=== PATIENT | male | born 1950 | race Caucasian/White ===

== ENCOUNTER 2016-07-07 15:30 | Observation (INO) | payer BC ==
[2016-07-07] MEDS ORDERED: METOCLOPRAMIDE HCL 5 MG/ML VIAL IV ONE (16:22)
--- NOTE | 2016-07-07 16:42 | ERNOTE ---
Medical Problem HPI - Narrative Date of Service: 07/07/16 - General Chief Complaint: Flu Symptoms Time Seen by Provider: 07/07/16 16:06 Source: patient Exam Limitations: no limitations - Immun/Allergies/Home Medications Immunizations: IMMUNIZATION HX Immunizations Up to Date No History of Influenza Vaccine No Hx Pneumococcal Vaccination No Allergies/Adverse Reactions: Allergies No Known Allergies Allergy (Verified 07/21/12 17:21) Home Medications: HOME MEDICATIONS Atorvastatin Calcium [Lipitor] 20 mg PO DAILY 07/21/12 [Last Taken Unknown] Diovan Hct 160-25 mg Tablet 1 tab PO DAILY 07/21/12 [Last Taken Unknown] Levothyroxine Sodium [Synthroid] 200 mcg PO DAILY 07/21/12 [Last Taken Unknown] Varenicline Tartrate [Chantix] 1 mg PO DAILY 07/07/16 [Last Taken Unknown] buPROPion HCL [Wellbutrin XL] 150 mg PO DAILY 07/07/16 [Last Taken Unknown] - History of Present History Narrative: Pt. comes in with c/o weakness, cough, headache, sinus congestion, fever, and hiccups. Pt. states that he has had the cough and hiccups for 3 days but states that he has had the other symptoms since yesterday. Pt. denies any alleviating factors or aggravating factors. Pt. denies any NVD but states taht he has not been eating or drinking as much lately due to the overall malaise that he feels. Pt. is currently on abx for assumed tooth infection as pt. went to dentist for sinus and tooth pain. Review of Systems - Review of Systems Constitutional: Present: fever, chills, weakness, fatigue, malaise EYE: Present: no symptoms reported. Absent: eye pain, eye discharge, double vision ENT: Present: nose congestion, nasal drainage, other - teeth pain Respiratory: Present: cough. Absent: shortness of breath, wheezing Cardiology: Present: no symptoms reported. Absent: chest pain, palpitations, edema Gastrointestinal/Abdominal: Present: no symptoms reported. Absent: nausea, vomiting, diarrhea Genitourinary: Present: no symptoms reported Musculoskeletal: Present: muscle pain - generalized, joint pain - generalized Skin: Present: no symptoms reported Neurological: Present: headache. Absent: dizziness/light-headedness, numbness, tingling All Other Systems: All systems neg except as marked - Patient's Past Medical History Patient History - Medical: No pertinent hx - Social History Smoking Status: Never smoker Have you smoked in the past 12 months: No Do you dip or chew tobacco: No - Immunizations Immunizations Up to Date: No Hx Pneumococcal Vaccination: No History of Influenza Vaccine: No Physical Exam - Physical Exam General Appearance: Present: wd/wn, alert, no apparent distress Eye Exam: Normal inspection: bilateral, PERRL: bilateral, EOMI: bilateral Ears, Nose, Throat: Present: hearing decreased - R ear, abnormal TM (L) - TM tube, nasal congestion, sinus pain/drainage, pharyngeal erythema, tonsillar exudate - clear. Absent: abnormal TM (R) Neck: Present: normal inspection, nontender, supple, full range of motion. Absent: lymphadenopathy (R), lymphadenopathy (L) Respiratory: Present: no respiratory distress, normal breath sounds, no accessory muscle use, chest nontender, lungs clear. 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 Absent: motor weakness Skin Exam: Present: normal color, warm/dry. Absent: pallor, skin rash ED Progress - Date and Time Seen: Date and Time: 07/07/16 20:36 Discussed case with Vanna Ye and we will admit pt for observation to ensure improvement in renal disease. - Results and Orders Patient's Lab Results:: I have reviewed the patient's lab results. - Vital Signs Patient's Vital Signs:: I have reviewed the patient's vital signs. Vital Signs: Vital Signs 07/07/16 16:00 Temperature 38.1 C H Pulse Rate 126 H Respiratory 20 Rate Blood Pressure 138/77 O2 Sat by Pulse 95 Oximetry - X-Ray X-Ray #1 X-Ray: chest Interpretation: Reviewed by me X-ray Comments: bronchial cuffing no consolidation - Progress/Reassessment Chief Complaint: Flu Symptoms Progress:: Unchanged Departure - Departure Clinical Impression: Influenza A, Bronchitis, Dehydration, TRISTAN (acute kidney injury) Disposition: [facility] Condition: Fair
[2016-07-07] MEDS ORDERED: LIDOCAINE HCL 20 ML UDC PO ONE (16:46)
[2016-07-07] MEDS ORDERED: SUCRALFATE 1 G/10 ML UDC PO ONE (16:46)
[2016-07-07] MEDS ORDERED: MAG HYDROX/ALUMINUM HYD/SIMETH 30 ML UDC PO ONE (16:46)
[2016-07-07] MEDS ORDERED: NORMAL SALINE 1,000 ML IV ONE (16:47)
[2016-07-07] MEDS ORDERED: METOCLOPRAMIDE HCL 5 MG/ML VIAL ONE (16:49)
[2016-07-07 16:52] LABS: Hematocrit 45.6 % (42.0-52.0); Hemoglobin 15.4 gm/dL (13.5-18.0); Mean Cell Volume 89.1 fl (78-100); Mean Corpuscular Hemoglobin 30.1 pg (27-31); Mean Corpuscular Hgb Conc 33.8 g/dl (32-36); Mean Platelet Volume 11.6 fl (6.0-9.5); Neutrophil # 12.6 K/mm3 (1.3-6.0); Neutrophil % 89.2 % (42-75.0); Platelet Count 239 K/mm3 (150-450); Red Blood Count 5.12 M/mm3 (4.7-6.0); Red Cell Distribution Width 13.9 % (11.5-14.0); White Blood Count 14.2 K/mm3 (4.0-10.5)
[2016-07-07 17:07] LABS: Albumin * 3.5 gm/dl (3.4-5.0); Anion Gap 15.3 mmol/L (6.8-13.8); BUN/Creatinine Ratio 13.5 (9.0-21.6); Bilirubin, Total 0.7 mg/dL (0.0-1.1); Calcium * 8.9 mg/dL (7.9-10.9); Potassium 3.3 mmol/L (3.4-4.6); Total Protein 7.6 gm/dL (6.2-8.2)
[2016-07-07 17:16] LABS: Urine Bilirubin 1 mg/dl (NEGATIVE); Urine Ketone Negative (NEGATIVE); Urine Nitrite Negative (NEGATIVE); Urine Protein 15 mg/dL (NEGATIVE); Urine Specific Gravity >=1.030 SP.GR. (1.005-1.030); Urine Urobilinogen Normal (NORMAL); Urine pH 5.5 pH (5.0-7.0)
[2016-07-07] MEDS ORDERED: NORMAL SALINE 1,000 ML IV PRN (17:24)
[2016-07-07] MEDS ORDERED: LEVOFLOXACIN/D5W 750 MG/150 ML BAG IV SCH (17:30)
[2016-07-07 17:39] LABS: Urine Appearance Clear; Urine Bacteria TRACE; Urine Blood 10 /ul (NEGATIVE); Urine Color Dark Yellow; Urine Fine Granular Cast 0-5 /LPF; Urine Hyaline Cast >25 /LPF; Urine Mucus Many - 3+; Urine RBC 0-5 /hpf (0-5); Urine WBC 0-5 /hpf (0-5)
[2016-07-07 17:44] LABS: Albumin * 3.5 gm/dl (3.4-5.0); Bilirubin Direct 0.2 mg/dL (0.0-0.3); Bilirubin, Total 0.7 mg/dL (0.0-1.1); Bilirubin,Indirect 0.5 mg/dL (0.1-0.7); Chol/HDL Risk Ratio 2.7 mg/dL (3.3-5.0); TSH * 1.081 uIU/mL (0.358-3.74); Total Protein 7.7 gm/dL (6.2-8.2)
[2016-07-07 18:01] LABS: T4 Free * 1.4 ng/dL (0.76-1.46)
[2016-07-07] MEDS ORDERED: ONDANSETRON HCL/PF 2 MG/ML VIAL IV PRN (21:11)
--- NOTE | 2016-07-07 21:13 | HP ---
<EphraimVanna - Last Filed: 07/08/16 01:03> Chief Complaint - Chief Complaint Date of Service: 07/07/16 Time of Service: 20:42 Chief Complaint: " Coughing, nasal drainage, body aches, headaches". Source of HPI- Pt;Reliable, ER provider report. History of Present Illness: Mr. Canas is a 65-yr-old WM pt of Dr. Beornica Lane with a PMH of: Anxiety, Depression, Grave's disease, HTN, HLD, Osteoathritis, & Sleep Apnea. Pt states that he has not felt well since Sunday. He developed nasal drainage and non productive coughing. Over the course of the week, he has not felt any better and the symptoms have worsened. He has been unable to eat or drink normally. He has also had headaches and body aches. Today, he felt dizzy on top of all the other symptoms and so he chose to come to the [facility] ER. He is unsure about having fevers but has had chills. He denies n/v, diarrhea, abd pain, and chest pain. He reports seeing a dentist on Sunday for unrelated ill events to the current symptoms. He had RT Jaw pain but no dental infection was found. He was started on Penicillin & Vicodin. He has less discomfort/pain on the jaw now. During evaluation at the ED, the CXR showed findings consistent with acute/ chronic bronchitis and was positive for Influenza A as well. He was febrile with a temp of 38.3, had elevated WBC of 14,200 with a left shift and BUN/CR 26 /1.93. He will be admitted under observation due to TRISTAN secondary to dehydration , and will require aggressive IVF hydration. - Patient's Past Medical History Patient History - Medical: Anxiety, Depression, Other - Grave's disease, Osteoathritis, Sleep apnea, Patient History - Cardiac/Respiratory: Hypertension, Hyperlipidemia, Other Patient History - Cancer: No Hx of Cancer Patient History - Surgical Procedures: Other - parotid gland surgery, Sinus surgery, Tonsilectomy. - Family History Father Family History - Medical: Family History - Cancer: Prostate Mother Family History - Cardiac/Respiratory: Hypertension - Social History Living Situations: spouse Smoking Status: Current every day smoker - 10 cig/day x 10 yrs Have you smoked in the past 12 months: No Do you dip or chew tobacco: No Alcohol Use: none Drug Use: none - Immunizations Immunizations Up to Date: No Hx Pneumococcal Vaccination: No History of Influenza Vaccine: No Review Of Systems (GEN) - Review of Systems Generalized/Overall Review: Present: Weakness, Fatigue. Absent: Chills, Fever, Diaphoresis EENTM: Present: Tearing, Nose Pain, Nose Congestion, Throat Pain. Absent: Eye Pain Respiratory: Present: Cough. Absent: Shortness of Breath, Wheezing Cardiac: Absent: Chest Pain, Edema, Palpitations, Syncope Abdominal: Absent: Nausea, Vomiting, Abdominal Pain, Constipation Genitourinary: Absent: Burning, Itching, Urgency, Frequency, Hematuria Musculoskeletal: Absent: Joint Pain, Back Pain, Muscle Pain Neurological: Present: Headache, Anxiety, Emotional Problems. Absent: Numbness Skin: Absent: Dryness, Lesions, Lumps, Bruising Endocrine: Absent: Intolerance to Cold, Intolerance to Heat, Increased Thirst Misc: All systems neg except as marked Immunizations: IMMUNIZATION HX Immunizations Up to Date No History of Influenza Vaccine No Hx Pneumococcal Vaccination No Allergies/Adverse Reactions: Allergies Allergy/AdvReac Type Severity Reaction Status Date / Time No Known Allergies Allergy Verified 07/21/12 17:21 Home Medications: HOME MEDICATIONS Atorvastatin Calcium [Lipitor] 20 mg PO DAILY 07/21/12 [Last Taken Unknown] Diovan Hct 160-25 mg Tablet 1 tab PO DAILY 07/21/12 [Last Taken Unknown] Levothyroxine Sodium [Synthroid] 200 mcg PO DAILY 07/21/12 [Last Taken Unknown] Potassium Chloride [Klor-Con 10] 10 meq PO DAILY 07/07/16 [Last Taken Unknown] buPROPion HCL [Wellbutrin XL] 150 mg PO DAILY 07/07/16 [Last Taken Unknown] Exam - Exam Vital Signs: Vital Signs - Last Taken Temp 38.3 C H 07/07/16 20:17 Pulse 117 H 07/07/16 20:17 Resp 20 07/07/16 20:17 BP 133/73 07/07/16 20:17 Pulse Ox 95 07/07/16 20:17 Constitutional: Present: Alert, Oriented x3, Cooperative, Mild distress ENT Exam: Present: hard of hearing, nasal congestion, nasal drainage, pharyngeal erythema, dry mucous membranes Eye Exam: bilateral eye: PERRL, other - Teary/watery eyes Neck: Present: full range of motion, supple, normal inspection, trachea midline Back Exam: Present: no CVA tenderness Respiratory: Present: no accessory muscle use, decreased breath sounds, No wheezing Cardiovascular/Chest: Present: regular rate, rhythm, no murmur Abdomen: Present: Normal bowel sounds, soft, nontender /Rectal: Present: Exam deferred Extremity: Present: non-tender, normal inspection, no pedal edema Skin Exam: Present: warm/dry, no cyanosis Lymphatic: Present: no adenopathy Neurologic: Present: no motor/sensory deficits, alert, oriented x 3 Appearance: Present: appropriate appearance, appropriate insight Eye contact: Present: cooperative, good eye contact, normal speech Thoughts: Present: normal thought pattern, no apparent hallucination Diagnostic Studies: Laboratory Results WBC 14.2 K/mm3 (4.0-10.5) H 07/07/16 16:35 RBC 5.12 M/mm3 (4.7-6.0) 07/07/16 16:35 Hgb 15.4 gm/dL (13.5-18.0) 07/07/16 16:35 Hct 45.6 % (42.0-52.0) 07/07/16 16:35 MCV 89.1 fl (78-100) 07/07/16 16:35 MCH 30.1 pg (27-31) 07/07/16 16:35 MCHC 33.8 g/dl (32-36) 07/07/16 16:35 RDW 13.9 % (11.5-14.0) 07/07/16 16:35 Plt Count 239 K/mm3 (150-450) 07/07/16 16:35 MPV 11.6 fl (6.0-9.5) H 07/07/16 16:35 Immature Gran % (Auto) 0.40 % (0.001-0.429) 07/07/16 16:35 Immature Gran # (Auto) 0.05 K/mm3 (0.000-0.0310) H 07/07/16 16:35 Neutrophils % 89.2 % (42-75.0) H 07/07/16 16:35 Lymphocytes % 3.7 % (20-51) L 07/07/16 16:35 Monocytes % 6.1 % (0.0-9) 07/07/16 16:35 Eosinophils % 0.0 % (0.0-3.0) 07/07/16 16:35 Basophils % 0.6 % (0.0-1.0) 07/07/16 16:35 Nucleated RBC % 0.0 k/mm3 (0-1) 07/07/16 16:35 Neutrophils # 12.6 K/mm3 (1.3-6.0) H 07/07/16 16:35 Lymphocytes # 0.5 k/mm3 (1.5-3.5) L 07/07/16 16:35 Monocytes # 0.9 k/mm3 (0.0-1.0) 07/07/16 16:35 Eosinophils # 0.0 k/mm3 (0.0-0.7) 07/07/16 16:35 Absolute Basophils 0.1 k/mm3 (0.0-0.1) 07/07/16 16:35 Sodium 135 mmol/L (132-142) 07/07/16 16:35 Plasma Sodium 136 mmol/L (130-142) 07/07/16 16:35 Potassium 3.3 mmol/L (3.4-4.6) L 07/07/16 16:35 Chloride 100 mmol/L (97-106) 07/07/16 16:35 Carbon Dioxide 23.0 mmol/L (24-32.6) L 07/07/16 16:35 Anion Gap 15.3 mmol/L (6.8-13.8) H 07/07/16 16:35 BUN 26 mg/dL (6-23) H 07/07/16 16:35 Creatinine 1.93 mg/dL (0.4-1.4) H D 07/07/16 16:35 Est GFR (Non-Af Amer) 37 mL/min (60-130) L D 07/07/16 16:35 BUN/Creatinine Ratio 13.5 (9.0-21.6) 07/07/16 16:35 Random Glucose 144 mg/dL (70-110) H 07/07/16 16:35 Lactic Acid, Venous 0.9 mmol/L (0.4-2.0) 07/07/16 19:29 Calcium 8.9 mg/dL (7.9-10.9) 07/07/16 16:35 Calcium Adj for Albumin 9.0 mg/dL (8.4-10.2) 07/07/16 16:35 Total Bilirubin 0.7 mg/dL (0.0-1.1) 07/07/16 16:35 Direct Bilirubin 0.2 mg/dL (0.0-0.3) 07/07/16 16:30 Indirect Bilirubin 0.5 mg/dL (0.1-0.7) 07/07/16 16:30 AST 27 U/L (0-48) 07/07/16 16:35 ALT 35 U/L (19-67) 07/07/16 16:35 Alkaline Phosphatase 72 U/L (50-170) 07/07/16 16:35 Total Protein 7.6 gm/dL (6.2-8.2) 07/07/16 16:35 Albumin 3.5 gm/dl (3.4-5.0) 07/07/16 16:35 Triglycerides 77 mg/dL (30-200) 07/07/16 16:30 Cholesterol 122 mg/dL (0-200) 07/07/16 16:30 LDL Cholesterol 63 mg/dL (70-130) L 07/07/16 16:30 VLDL Cholesterol 15 mg/dL (5-40) 07/07/16 16:30 HDL Cholesterol 44 mg/dL (40-60) 07/07/16 16:30 Cholesterol/HDL Ratio 2.7 mg/dL (3.3-5.0) L 07/07/16 16:30 Procalcitonin 0.34 ng/mL (0.05-0.50) 07/07/16 16:35 TSH 1.081 uIU/mL (0.358-3.74) 07/07/16 16:30 Free T4 1.40 ng/dL (0.76-1.46) 07/07/16 16:30 Urine Color Dark yellow 07/07/16 17:00 Urine Appearance Clear 07/07/16 17:00 Urine pH 5.5 pH (5.0-7.0) 07/07/16 17:00 Ur Specific Kennedy >=1.030 SP.GR. (1.005-1.030) 07/07/16 17:00 Urine Protein 15 mg/dL (NEGATIVE) H 07/07/16 17:00 Urine Glucose (UA) Negative mg/dL (NEGATIVE) 07/07/16 17:00 Urine Ketones Negative mg/dL (NEGATIVE) 07/07/16 17:00 Urine Blood 10 /ul (NEGATIVE) H 07/07/16 17:00 Urine Nitrate Negative (NEGATIVE) 07/07/16 17:00 Urine Bilirubin 1 mg/dl (NEGATIVE) H 07/07/16 17:00 Urine Ictotest Negative (NEGATIVE) 07/07/16 17:00 Prot Sulfosalicylic Acd Negative mg/dL (0) 07/07/16 17:00 Urine Urobilinogen Normal EU/dl (NORMAL) 07/07/16 17:00 Ur Leukocyte Esterase Negative /ul (NEGATIVE) 07/07/16 17:00 Urine RBC 0-5 /hpf (0-5) 07/07/16 17:00 Urine WBC 0-5 /hpf (0-5) 07/07/16 17:00 Ur Epithelial Cells 0-5 /hpf (0-5) 07/07/16 17:00 Urine Bacteria Trace (NONE) 07/07/16 17:00 Hyaline Casts >25 /LPF (NONE) H 07/07/16 17:00 Fine Granular Casts 0-5 /LPF (NONE) H 07/07/16 17:00 Urine Mucus Many - 3+ (NONE) H 07/07/16 17:00 Urine Culture Comments No culture indicated 07/07/16 17:00 Influenza Type A Ag Positive (NEGATIVE) H 07/07/16 16:15 Influenza Type B Ag Negative (NEGATIVE) 07/07/16 16:15 Assessment/Plan - Assessment/Plan (1) TRISTAN (acute kidney injury) Assessment: Noted to have BUN/CR of 26/1.93. His baseline is usually in the NR. Is pre- renal due to dehydration from poor oral/intake and fevers. Will provide aggressive IVF hydration. BMP in am. Problem: Acute (2) Dehydration Assessment: Rehydration with IVF, labs in am. Problem: Acute (3) Influenza A Assessment: Was Positive for Influenza A- Will start Osetalmivir 75mg bid x 10 days. If he gets severely ill, can increase the doses to 150mg b.i.d, but consider creatinine clearance. Problem: Acute (4) Acute bronchiolitis Assessment: Routine antibiotics not usually recommended for uncomplicated acute bronchitis. However, given pt's fevers, elevated WBC with a left shift, being a smoker, it will be beneficial to continue with the IV antibiotics. Will add Albuterol PRN for airflow limitation/SOB. Problem: Acute (5) Hypokalemia Assessment: Oral Replenishing, BMP in am Problem: Acute (6) Hiccoughs Assessment: Has has acute hiccuughs lasting several hours. Will utilize Reglan prn to help with the symptom. Problem: Acute (7) HTN (hypertension) Assessment: Stable - on Diovan. Problem: Chronic QualifierTitle: Hypertension type: essential hypertension Qualified Code( s): I10 - Essential (primary) hypertension (8) Depression Assessment: Stable -on Wellbutrin. Problem: Chronic <Juan Alvarado - Last Filed: 07/08/16 11:44> Immunizations: IMMUNIZATION HX Immunizations Up to Date No History of Influenza Vaccine No Hx Pneumococcal Vaccination No Exam - Exam Vital Signs: Vital Signs - Last Taken Temp 37.3 C 07/08/16 10:52 Pulse 84 07/08/16 10:52 Resp 20 07/08/16 10:52 BP 119/70 07/08/16 10:52 Pulse Ox 90 07/08/16 10:52 Diagnostic Studies: Abnormal Lab Results 07/08/16 07/08/16 Range/Units 05:33 05:33 WBC 10.9 H D (4.0-10.5) K/mm3 RBC 4.38 L (4.7-6.0) M/mm3 Hgb 13.0 L (13.5-18.0) gm/dL Hct 39.1 L (42.0-52.0) % MPV 11.1 H (6.0-9.5) fl Immature Gran # (Auto) 0.04 H (0.000-0.0310) K/mm3 Neutrophils % 82.2 H (42-75.0) % Lymphocytes % 8.2 L (20-51) % Neutrophils # 9.0 H (1.3-6.0) K/mm3 Lymphocytes # 0.9 L (1.5-3.5) k/mm3 Potassium 3.3 L (3.4-4.6) mmol/L Laboratory Results WBC 10.9 K/mm3 (4.0-10.5) H D 07/08/16 05:33 RBC 4.38 M/mm3 (4.7-6.0) L 07/08/16 05:33 Hgb 13.0 gm/dL (13.5-18.0) L 07/08/16 05:33 Hct 39.1 % (42.0-52.0) L 07/08/16 05:33 MCV 89.3 fl (78-100) 07/08/16 05:33 MCH 29.7 pg (27-31) 07/08/16 05:33 MCHC 33.2 g/dl (32-36) 07/08/16 05:33 RDW 13.7 % (11.5-14.0) 07/08/16 05:33 Plt Count 180 K/mm3 (150-450) 07/08/16 05:33 MPV 11.1 fl (6.0-9.5) H 07/08/16 05:33 Immature Gran % (Auto) 0.40 % (0.001-0.429) 07/08/16 05:33 Immature Gran # (Auto) 0.04 K/mm3 (0.000-0.0310) H 07/08/16 05:33 Neutrophils % 82.2 % (42-75.0) H 07/08/16 05:33 Lymphocytes % 8.2 % (20-51) L 07/08/16 05:33 Monocytes % 8.9 % (0.0-9) 07/08/16 05:33 Eosinophils % 0.0 % (0.0-3.0) 07/08/16 05:33 Basophils % 0.3 % (0.0-1.0) 07/08/16 05:33 Nucleated RBC % 0.0 k/mm3 (0-1) 07/08/16 05:33 Neutrophils # 9.0 K/mm3 (1.3-6.0) H 07/08/16 05:33 Lymphocytes # 0.9 k/mm3 (1.5-3.5) L 07/08/16 05:33 Monocytes # 1.0 k/mm3 (0.0-1.0) 07/08/16 05:33 Eosinophils # 0.0 k/mm3 (0.0-0.7) 07/08/16 05:33 Absolute Basophils 0.0 k/mm3 (0.0-0.1) 07/08/16 05:33 Sodium 138 mmol/L (132-142) 07/08/16 05:33 Plasma Sodium 138 mmol/L (130-142) 07/08/16 05:33 Potassium 3.3 mmol/L (3.4-4.6) L 07/08/16 05:33 Chloride 106 mmol/L (97-106) 07/08/16 05:33 Carbon Dioxide 24.8 mmol/L (24-32.6) 07/08/16 05:33 Anion Gap 10.5 mmol/L (6.8-13.8) 07/08/16 05:33 BUN 22 mg/dL (6-23) 07/08/16 05:33 Creatinine 1.21 mg/dL (0.4-1.4) 07/08/16 05:33 Est GFR (Non-Af Amer) 64 mL/min (60-130) D 07/08/16 05:33 BUN/Creatinine Ratio 18.2 (9.0-21.6) 07/08/16 05:33 Random Glucose 109 mg/dL (70-110) 07/08/16 05:33 Lactic Acid, Venous 0.9 mmol/L (0.4-2.0) 07/07/16 19:29 Calcium 8.0 mg/dL (7.9-10.9) 07/08/16 05:33 Calcium Adj for Albumin 9.0 mg/dL (8.4-10.2) 07/07/16 16:35 Total Bilirubin 0.7 mg/dL (0.0-1.1) 07/07/16 16:35 Direct Bilirubin 0.2 mg/dL (0.0-0.3) 07/07/16 16:30 Indirect Bilirubin 0.5 mg/dL (0.1-0.7) 07/07/16 16:30 AST 27 U/L (0-48) 07/07/16 16:35 ALT 35 U/L (19-67) 07/07/16 16:35 Alkaline Phosphatase 72 U/L (50-170) 07/07/16 16:35 Total Protein 7.6 gm/dL (6.2-8.2) 07/07/16 16:35 Albumin 3.5 gm/dl (3.4-5.0) 07/07/16 16:35 Triglycerides 77 mg/dL (30-200) 07/07/16 16:30 Cholesterol 122 mg/dL (0-200) 07/07/16 16:30 LDL Cholesterol 63 mg/dL (70-130) L 07/07/16 16:30 VLDL Cholesterol 15 mg/dL (5-40) 07/07/16 16:30 HDL Cholesterol 44 mg/dL (40-60) 07/07/16 16:30 Cholesterol/HDL Ratio 2.7 mg/dL (3.3-5.0) L 07/07/16 16:30 Procalcitonin 0.34 ng/mL (0.05-0.50) 07/07/16 16:35 TSH 1.081 uIU/mL (0.358-3.74) 07/07/16 16:30 Free T4 1.40 ng/dL (0.76-1.46) 07/07/16 16:30 Urine Color Dark yellow 07/07/16 17:00 Urine Appearance Clear 07/07/16 17:00 Urine pH 5.5 pH (5.0-7.0) 07/07/16 17:00 Ur Specific Kennedy >=1.030 SP.GR. (1.005-1.030) 07/07/16 17:00 Urine Protein 15 mg/dL (NEGATIVE) H 07/07/16 17:00 Urine Glucose (UA) Negative mg/dL (NEGATIVE) 07/07/16 17:00 Urine Ketones Negative mg/dL (NEGATIVE) 07/07/16 17:00 Urine Blood 10 /ul (NEGATIVE) H 07/07/16 17:00 Urine Nitrate Negative (NEGATIVE) 07/07/16 17:00 Urine Bilirubin 1 mg/dl (NEGATIVE) H 07/07/16 17:00 Urine Ictotest Negative (NEGATIVE) 07/07/16 17:00 Prot Sulfosalicylic Acd Negative mg/dL (0) 07/07/16 17:00 Urine Urobilinogen Normal EU/dl (NORMAL) 07/07/16 17:00 Ur Leukocyte Esterase Negative /ul (NEGATIVE) 07/07/16 17:00 Urine RBC 0-5 /hpf (0-5) 07/07/16 17:00 Urine WBC 0-5 /hpf (0-5) 07/07/16 17:00 Ur Epithelial Cells 0-5 /hpf (0-5) 07/07/16 17:00 Urine Bacteria Trace (NONE) 07/07/16 17:00 Hyaline Casts >25 /LPF (NONE) H 07/07/16 17:00 Fine Granular Casts 0-5 /LPF (NONE) H 07/07/16 17:00 Urine Mucus Many - 3+ (NONE) H 07/07/16 17:00 Urine Culture Comments No culture indicated 07/07/16 17:00 Influenza Type A Ag Positive (NEGATIVE) H 07/07/16 16:15 Influenza Type B Ag Negative (NEGATIVE) 07/07/16 16:15 Assessment/Plan - Narrative Narrative: Chart reviewed. Patient examined. Poor oral intake for the last 4 days, with what has turned out to be influenza with dehydration. Also, a dental infection , seen by the dentist 4 days ago, less painful now, had been taking penicillin. I personally directed all of [facility]'s care for this patient. Estimate stay of 3 days. Antibiotics and supportive care.
[2016-07-07] MEDS ORDERED: POTASSIUM CHLORIDE 40 MEQ/15 ML BTL PO ONE (21:30)
[2016-07-07] MEDS: OSELTAMIVIR PHOSPHATE 75 MG CAPSULE PO SCH (21:34)
[2016-07-07] MEDS: NORMAL SALINE 1,000 ML IV PRN (21:35)
[2016-07-07] MEDS ORDERED: METOCLOPRAMIDE HCL 5 MG/ML VIAL IV PRN (21:40)
[2016-07-07] MEDS: ACETAMINOPHEN 325 MG TABLET PO PRN (22:05)
[2016-07-08] MEDS ORDERED: ALBUTEROL SULFATE 2.5 MG/0.5 ML VIAL.NEB IH PRN (00:12)
[2016-07-08 05:40] LABS: Hematocrit 39.1 % (42.0-52.0); Mean Cell Volume 89.3 fl (78-100); Mean Corpuscular Hemoglobin 29.7 pg (27-31); Mean Corpuscular Hgb Conc 33.2 g/dl (32-36); Mean Platelet Volume 11.1 fl (6.0-9.5); Neutrophil % 82.2 % (42-75.0); Platelet Count 180 K/mm3 (150-450); Red Blood Count 4.38 M/mm3 (4.7-6.0); Red Cell Distribution Width 13.7 % (11.5-14.0); White Blood Count 10.9 K/mm3 (4.0-10.5)
[2016-07-08] MEDS: NORMAL SALINE 1,000 ML IV PRN ×3 (05:48→21:24)
[2016-07-08 05:54] LABS: Anion Gap 10.5 mmol/L (6.8-13.8); BUN/Creatinine Ratio 18.2 (9.0-21.6); Carbon Dioxide 24.8 mmol/L (24-32.6); Estimated Creat Clear 75.2; Potassium 3.3 mmol/L (3.4-4.6)
[2016-07-08] MEDS: ACETAMINOPHEN 325 MG TABLET PO PRN ×2 (07:05→14:34)
[2016-07-08] MEDS ORDERED: LOSARTAN POTASSIUM 50 MG TABLET PO SCH ×2 (09:00)
[2016-07-08] MEDS ORDERED: VARENICLINE TARTRATE 1 MG TABLET PO SCH (09:00)
[2016-07-08] MEDS ORDERED: HYDROCHLOROTHIAZIDE 25 MG TABLET PO SCH (09:00)
[2016-07-08] MEDS ORDERED: POTASSIUM CHLORIDE 10 MEQ TABLET.SA PO SCH (09:00)
[2016-07-08] MEDS: OSELTAMIVIR PHOSPHATE 75 MG CAPSULE PO SCH ×2 (09:35→20:18)
[2016-07-08] MEDS: buPROPion HCL 150 MG TAB.SR.24H PO SCH (09:35)
[2016-07-08] MEDS: LEVOTHYROXINE SODIUM 100 MCG TABLET PO SCH (09:36)
[2016-07-08] MEDS: POTASSIUM CHLORIDE 10 MEQ TABLET.SA PO SCH ×3 (09:36→16:53)
--- NOTE | 2016-07-08 11:49 | PN ---
Subjective - Date and Time Seen Date: 07/08/16 Time: 07:50 Subjective Narrative: Could eat today for the first time in 3 days. Otherwise about the same, including severe malaise. Dental pain has improved with penicillin since 4 days ago. Objective - Review of Systems Generalized/Overall Review: Reports: Weakness, Chills, Malaise, Diaphoresis, Fatigue, Weight loss EENTM: Reports: No Symptoms Reported Respiratory: Reports: Cough, Shortness of Breath, Wheezing Cardiac: Reports: Chest Pain Abdominal: Reports: No Symptoms Reported Genitourinary Symptoms: Reports: No Symptoms Reported Musculoskeletal Complaints: Reports: Muscle Pain Neurological: Reports: Anxiety, Depressed Skin: Reports: No Symptoms Reported Endocrine: Reports: No Symptoms Reported Misc: All systems neg except as marked - Vitals Vitals: Last Vital Signs Selected Entries 07/08/16 07/08/16 02:15 07:09 Temperature 37.7 C H 37.7 C H Temperature Oral Source Pulse Rate 92 Respiratory 20 Rate Blood Pressure 129/69 Blood Pressure Supine Position O2 Sat by Pulse 90 Oximetry Oxygen Delivery Room Air Method - Abnormal Lab Findings Abnormal Lab Findings: Abnormal Lab Results 07/08/16 07/08/16 Range/Units 05:33 05:33 WBC 10.9 H D (4.0-10.5) K/mm3 RBC 4.38 L (4.7-6.0) M/mm3 Hgb 13.0 L (13.5-18.0) gm/dL Hct 39.1 L (42.0-52.0) % MPV 11.1 H (6.0-9.5) fl Immature Gran # (Auto) 0.04 H (0.000-0.0310) K/mm3 Neutrophils % 82.2 H (42-75.0) % Lymphocytes % 8.2 L (20-51) % Neutrophils # 9.0 H (1.3-6.0) K/mm3 Lymphocytes # 0.9 L (1.5-3.5) k/mm3 Potassium 3.3 L (3.4-4.6) mmol/L - Exam Constitutional: Present: Alert, Oriented x3, Cooperative, Well developed, Mild distress, Obese ENT Exam: Present: normal ENT inspection, hearing grossly normal, dry mucous membranes Neck: Present: full range of motion, normal inspection Respiratory: Present: lungs clear, normal breath sounds, no respiratory distress Cardiovascular/Chest: Present: regular rate, rhythm, no murmur Abdomen: Present: Normal bowel sounds, soft, nontender, nondistended, no rebound tenderness, no hepatospenomegaly, no masses, obese Extremity: Present: non-tender, no pedal edema Skin Exam: Present: normal color, warm/dry, no cyanosis Lymphatic: Present: no adenopathy Neurologic: Present: alert, oriented x 3, motor weakness Appearance: Present: appropriate appearance, appropriate insight, neat, no memory impairment Eye contact: Present: cooperative, good eye contact, normal speech Thoughts: Present: normal thought pattern Assessment/Plan Plan Narrative: IV fluids. Antibiotics to cover teeth and respiratory. Follow labs. Incrfease activity. Tu wehn better. - Problems/Diagnosis (1) TRISTAN (acute kidney injury) Problem: Acute (2) Bronchitis Problem: Acute (3) Dehydration Problem: Acute (4) Influenza A Problem: Acute (5) Depression Problem: Chronic Qualifiers: Depression Type: unspecified Qualified Code(s): F32.9 - Major depressive disorder, single episode, unspecified (6) HTN (hypertension) Problem: Chronic Qualifiers: Hypertension type: essential hypertension Qualified Code(s): I10 - Essential (primary) hypertension
[2016-07-08] MEDS: AMPICILLIN SODIUM/SULBACTAM NA 3 GM in NORMAL SALINE 100 ML IV SCH ×3 (11:56→22:27)
[2016-07-08] MEDS ORDERED: ATORVASTATIN CALCIUM 10 MG TABLET PO SCH (21:00)
[2016-07-08] MEDS ORDERED: ROSUVASTATIN CALCIUM 10 MG TABLET PO SCH (21:00)
[2016-07-09] MEDS: NORMAL SALINE 1,000 ML IV PRN (04:39)
[2016-07-09] MEDS: AMPICILLIN SODIUM/SULBACTAM NA 3 GM in NORMAL SALINE 100 ML IV SCH (04:40)
[2016-07-09 05:40] LABS: Hematocrit 39.6 % (42.0-52.0); Hemoglobin 13.3 gm/dL (13.5-18.0); Mean Corpuscular Hemoglobin 29.9 pg (27-31); Mean Corpuscular Hgb Conc 33.6 g/dl (32-36); Mean Platelet Volume 11.6 fl (6.0-9.5); Neutrophil # 3.9 K/mm3 (1.3-6.0); Neutrophil % 65.1 % (42-75.0); Platelet Count 185 K/mm3 (150-450); Red Blood Count 4.45 M/mm3 (4.7-6.0); Red Cell Distribution Width 13.6 % (11.5-14.0)
[2016-07-09 06:07] LABS: Anion Gap 10.5 mmol/L (6.8-13.8); BUN/Creatinine Ratio 14.4 (9.0-21.6); Calcium * 8.1 mg/dL (7.9-10.9); Carbon Dioxide 25.8 mmol/L (24-32.6); Estimated Creat Clear 87.5; Potassium 3.3 mmol/L (3.4-4.6); T4 Free * 1.32 ng/dL (0.76-1.46); TSH * 2.052 uIU/mL (0.358-3.74)
[2016-07-09] MEDS: LEVOTHYROXINE SODIUM 100 MCG TABLET PO SCH (06:44)
[2016-07-09] MEDS: buPROPion HCL 150 MG TAB.SR.24H PO SCH (08:49)
[2016-07-09] MEDS: OSELTAMIVIR PHOSPHATE 75 MG CAPSULE PO SCH (08:49)
[2016-07-09] MEDS ORDERED: POTASSIUM CHLORIDE 20 MEQ TABLET.SA PO SCH (09:00)
[2016-07-09] MEDS ORDERED: SODIUM CHLORIDE 45 SPRAY BTL NS PRN (10:30)
--- NOTE | 2016-07-09 10:43 | DS ---
(1) TRISTAN (acute kidney injury) Problem: Resolved (2) Bronchitis Problem: Acute (3) Dehydration Problem: Resolved (4) Influenza A Problem: Acute (5) Depression Problem: Chronic Qualifiers: Depression Type: unspecified Qualified Code(s): F32.9 - Major depressive disorder, single episode, unspecified (6) HTN (hypertension) Problem: Chronic Qualifiers: Hypertension type: essential hypertension Qualified Code(s): I10 - Essential (primary) hypertension (7) Chronic rhinitis Problem: Chronic (8) Dental infection Problem: Acute Description of Stay: Given tamiflu. Given IV fluids, electrolytes, and because he appeared toxic and had bronchitis, as well as a recent dental infection diagnosis, was also given antibiotics. He is much better, is eating, and would like to go back to work tomorrow. He has a dental followup appt next week. Procedures Performed: none Discharge Disposition: Home self care Disposition: Home self-care Condition: Good Discharge Activity: Activity as tolerated Discharge Diet: General/regular food Referrals: Beronica Lane MD [Primary Care Provider] - Problem Oriented Discharge Instructions to Patient/Family: Influenza, Adult, [id number], Acute Bronchitis Additional Patient Instructions (free text): Followup with your doctor in 1-2 weeks. You may return to work tomorrow. Prescriptions (Any new or edited meds): Acetaminophen [Tylenol] 650 mg PO QID PRN #1 tablet PRN Reason: Mild Pain Amox Tr/Potassium Clavulanate [Augmentin 500-125 Tablet] 500 mg PO TID #30 tab Oseltamivir Phosphate [Tamiflu] 75 mg PO BID #6 capsule Oxymetazoline HCl [Afrin Nasal Newell] 2 spray NS BID #1 btl Sodium Chloride [Saline Mist] 6 spray NS Q1H PRN #1 btl PRN Reason: nasal drainage Complete Home Medications List: Complete Home Medication List: Atorvastatin Calcium [Lipitor] 20 mg PO DAILY 07/21/12 Diovan Hct 160-25 mg Tablet 1 tab PO DAILY 07/21/12 Levothyroxine Sodium [Synthroid] 200 mcg PO DAILY 07/21/12 buPROPion HCL [Wellbutrin Xl] 150 mg PO DAILY 07/07/16 Acetaminophen [Tylenol] 650 mg PO QID PRN #1 tablet 07/09/16 Amox Tr/Potassium Clavulanate [Augmentin 500-125 Tablet] 500 mg PO TID #30 tab 07/09/16 Oseltamivir Phosphate [Tamiflu] 75 mg PO BID #6 capsule 07/09/16 Oxymetazoline HCl [Afrin Nasal Newell] 2 spray NS BID #1 btl 07/09/16 Sodium Chloride [Saline Mist] 6 spray NS Q1H PRN #1 btl 07/09/16
[2016-07-09 10:47] VITALS: BP 144/76
[2016-07-09] MEDS ORDERED: OXYMETAZOLINE HCL 150 SPRAY BTL NS SCH (21:00)
== END 2016-07-09 12:45 | disposition home or self-care (01) ==
LOC: ER 15:30 → UNDOADMOB 19:48 → MS 19:48
PROVIDERS: ADMIT Nurse Practitioner; ATTEND Internal Medicine
DX: J09.X2 Influenza due to identified novel influenza A virus with other respiratory manifestations (principal); J20.9 Acute bronchitis, unspecified; N17.9 Acute kidney failure, unspecified; E86.0 Dehydration; F32.9 Major depressive disorder, single episode, unspecified; I10 Essential (primary) hypertension; J31.0 Chronic rhinitis; K04.7 Periapical abscess without sinus
CPT/HCPCS: 36415; 71020; 80048; 80053; 80061; 80076; 81001; 83605; 84145; 84439; 84443; 85025; 87040; 87400; 96361; 96365; 96366; 96367; 96375; 99284; G0378